=== PATIENT | female | born 1935 | race Caucasian/White ===

== ENCOUNTER 2017-12-06 10:54 | Inpatient (IN) ==
[2017-12-06 12:25] LABS: Basophils % 0.2 % (0.0-0.8); Hemoglobin 14.4 GM/DL (12.0-16.0); Immature Granulocytes % 0.4 %; Immature Granulocytes Absolute 0.04 #; Lymphocytes # 0.5 10*3/uL (1.4-4.0); Lymphocytes % 5.4 % (21.3-54.2); Mean Corpuscular HGB Conc 34.3 GM/DL (32-36); Mean Corpuscular Hemoglobin 30 PG (27-34); Mean Corpuscular Volume 87.5 FL (87-102); Mean Platelet Volume 10.9 FL (9.6-12.0); Monocytes # 0.6 10*3/uL (0.11-0.8); Monocytes % 7.1 % (1.7-12.7); Neutrophils # 7.8 10*3/uL (1.4-7.4); Neutrophils % 86.9 % (38.7-73.9); Platelet Count 142 T/CUMM (130-400); Red Cell Distribution Width 13.8 % (9.3-17.3); White Blood Count 8.9 T/CUMM (4-12)
[2017-12-06 12:30] LABS: Apearance,Urine Slightly Hazy (Clear); Bacteria,Urine Many /HPF (Few); Bilirubin,Urine Negative (Negative); Blood, Urine Large mg/dL (Negative); Glucose,Urine (UA) Negative (Negative); Ketones,Urine 20 mg/dL (Negative); Mucus,Urine Occasional /LPF (Occasional); Nitrite,Urine Negative (Negative); Protein,Urine 100 MG/DL; Urine Color Amber (Yellow); Urine Specific Gravity 1.029 (1.001-1.035); Urine Urobilinogen < 2.0 EU/DL (0.2-1.0); WBC,Urine 3 /HPF (0-6)
[2017-12-06] MEDS ORDERED: SODIUM CHLORIDE 0.9% 1,000 ML IV STA ×2 (12:45→13:56)
[2017-12-06] MEDS ORDERED: DILTIAZEM 50 MG/10 ML VIAL IV STA (12:50)
[2017-12-06 12:55] LABS: Albumin 3.7 G/DL (3.4-5.0); Bilirubin,Total 1.2 MG/DL (0.2-1.0); Calcium 8.5 MG/DL (8.5-10.1); Potassium 3.5 MMOL/L (3.5-5.1); Total Protein 6.9 G/DL (6.4-8.3)
[2017-12-06 13:22] LABS: CKMB % 0.5 %
[2017-12-06] MEDS: DILTIAZEM INJ 100 MG in SODIUM CHLORIDE 0.9% 100 ML IV SCH (14:31)
[2017-12-06] MEDS ORDERED: ONDANSETRON 4 MG/2 ML VIAL IV PRN (14:41)
[2017-12-06 15:00] LABS: PT Patient Result 10.9 SECS
[2017-12-06] MEDS: SODIUM CHLORIDE 0.9% 1,000 ML IV SCH (15:59)
[2017-12-06] MEDS: ENOXAPARIN 60 MG/0.6 ML SYRINGE SUBCUT SCH (16:01)
[2017-12-06 21:39] LABS: CKMB % 0.4 %
[2017-12-06] MEDS: CARBIDOPA/LEVODOPA 25-100 MG TABLET PO SCH (21:50)
[2017-12-07 04:12] LABS: Basophils % 0.3 % (0.0-0.8); Eosinophils % 0.7 % (0.00-10.9); Hematocrit 36.5 VOL% (35.7-47.0); Hemoglobin 12.4 GM/DL (12.0-16.0); Immature Granulocytes % 0.3 %; Immature Granulocytes Absolute 0.02 #; Lymphocytes # 1.1 10*3/uL (1.4-4.0); Lymphocytes % 18.9 % (21.3-54.2); Mean Corpuscular Hemoglobin 30 PG (27-34); Mean Corpuscular Volume 89.2 FL (87-102); Mean Platelet Volume 11.1 FL (9.6-12.0); Monocytes # 0.5 10*3/uL (0.11-0.8); Neutrophils # 4.2 10*3/uL (1.4-7.4); Neutrophils % 71.8 % (38.7-73.9); Platelet Count 113 T/CUMM (130-400); Red Blood Count 4.09 MC/CUMM (3.8-5.5); Red Cell Distribution Width 14.1 % (9.3-17.3); White Blood Count 5.9 T/CUMM (4-12)
[2017-12-07 04:19] LABS: INR 1.1; PT Patient Result 11.6 SECS
[2017-12-07] MEDS: ENOXAPARIN 60 MG/0.6 ML SYRINGE SUBCUT SCH ×2 (04:28→17:19)
[2017-12-07 04:36] LABS: Calcium 7.6 MG/DL (8.5-10.1); Osmolality,Calculated 284.8 MOS/KG (273-304); Potassium 3.5 MMOL/L (3.5-5.1); Risk Ratio 2.7; Thyroid Stimulating Hormone 0.091 uIU/ml (0.358-3.74); VLDL CHOLESTEROL 15.2 MG/DL
[2017-12-07] MEDS: ACETAMINOPHEN 325 MG TABLET PO PRN ×2 (09:54→18:00)
[2017-12-07] MEDS: PANTOPRAZOLE 40 MG TABLET PO SCH (09:54)
[2017-12-07] MEDS: METOPROLOL TARTRATE 25 MG TABLET PO SCH (09:54)
[2017-12-07] MEDS: CARBIDOPA/LEVODOPA 25-100 MG TABLET PO SCH ×2 (09:54→21:29)
[2017-12-07] MEDS: SERTRALINE 100 MG TABLET PO SCH (09:55)
[2017-12-07] MEDS: DILTIAZEM INJ 100 MG in SODIUM CHLORIDE 0.9% 100 ML IV SCH (15:32)
[2017-12-07] MEDS: BACITRACIN OINT 0.9 GM PACK TOP SCH (17:19)
[2017-12-07] MEDS: SODIUM CHLORIDE 0.9% 1,000 ML IV SCH (17:19)
[2017-12-07 18:23] LABS: Apearance,Urine Slightly Hazy (Clear); Bacteria,Urine Occasional /HPF (Few); Bilirubin,Urine Negative (Negative); Blood, Urine Small mg/dL (Negative); Glucose,Urine (UA) Negative (Negative); Ketones,Urine 20 mg/dL (Negative); Mucus,Urine Occasional /LPF (Occasional); Nitrite,Urine Negative (Negative); Protein,Urine Negative; RBC,Urine 1 /HPF (0-4); Squamous Epithelial Cell,Urine Occasional /HPF (0-10); Urine Color Amber (Yellow); Urine Specific Gravity 1.018 (1.001-1.035); Urine Urobilinogen < 2.0 EU/DL (0.2-1.0); WBC,Urine 16 /HPF (0-6)
[2017-12-07] MEDS: traZODone 50 MG TABLET PO PRN (21:29)
[2017-12-08] MEDS: ENOXAPARIN 60 MG/0.6 ML SYRINGE SUBCUT SCH ×2 (04:21→16:36)
[2017-12-08 05:40] LABS: Basophils % 0.5 % (0.0-0.8); Eosinophils # 0.1 10*3/uL (0.0-0.87); Eosinophils % 2.9 % (0.00-10.9); Hematocrit 33.7 VOL% (35.7-47.0); Hemoglobin 11.8 GM/DL (12.0-16.0); Immature Granulocytes % 0.2 %; Immature Granulocytes Absolute 0.01 #; Lymphocytes # 0.7 10*3/uL (1.4-4.0); Lymphocytes % 16.4 % (21.3-54.2); Mean Corpuscular Hemoglobin 30 PG (27-34); Mean Corpuscular Volume 86.9 FL (87-102); Mean Platelet Volume 11.6 FL (9.6-12.0); Monocytes # 0.3 10*3/uL (0.11-0.8); Monocytes % 7.5 % (1.7-12.7); Neutrophils % 72.5 % (38.7-73.9); Platelet Count 106 T/CUMM (130-400); Red Blood Count 3.88 MC/CUMM (3.8-5.5); Red Cell Distribution Width 14.1 % (9.3-17.3); White Blood Count 4.2 T/CUMM (4-12)
[2017-12-08 06:17] LABS: Calcium 7.8 MG/DL (8.5-10.1); Osmolality,Calculated 283.8 MOS/KG (273-304); Potassium 3.1 MMOL/L (3.5-5.1)
[2017-12-08] MEDS: CARBIDOPA/LEVODOPA 25-100 MG TABLET PO SCH ×2 (08:47→21:22)
[2017-12-08] MEDS: SERTRALINE 100 MG TABLET PO SCH (08:47)
[2017-12-08] MEDS: PANTOPRAZOLE 40 MG TABLET PO SCH (08:48)
[2017-12-08] MEDS: METOPROLOL TARTRATE 25 MG TABLET PO SCH (08:48)
[2017-12-08] MEDS: BACITRACIN OINT 0.9 GM PACK TOP SCH (08:48)
[2017-12-08] MEDS ORDERED: POTASSIUM CHLORIDE 20 MEQ TABLET PO ONE (11:19)
[2017-12-08] MEDS: SODIUM CHLORIDE 0.9% 1,000 ML IV SCH (14:13)
[2017-12-08] MEDS: ERTAPENEM 1,000 MG in SODIUM CHLORIDE 0.9% 100 ML IV SCH (14:14)
[2017-12-08] MEDS: ACETAMINOPHEN 325 MG TABLET PO PRN (17:41)
[2017-12-08] MEDS: traZODone 50 MG TABLET PO PRN (21:23)
[2017-12-09 05:18] LABS: Calcium 7.8 MG/DL (8.5-10.1); Osmolality,Calculated 288.6 MOS/KG (273-304); Potassium 3.4 MMOL/L (3.5-5.1)
[2017-12-09] MEDS: SERTRALINE 100 MG TABLET PO SCH (08:59)
[2017-12-09] MEDS: CARBIDOPA/LEVODOPA 25-100 MG TABLET PO SCH (08:59)
[2017-12-09] MEDS: PANTOPRAZOLE 40 MG TABLET PO SCH (08:59)
[2017-12-09] MEDS: METOPROLOL TARTRATE 25 MG TABLET PO SCH (08:59)
[2017-12-09] MEDS ORDERED: POTASSIUM CHLORIDE 20 MEQ TABLET PO SCH (09:00)
[2017-12-09] MEDS: BACITRACIN OINT 0.9 GM PACK TOP SCH (09:31)
[2017-12-09] MEDS: SODIUM CHLORIDE 0.9% 1,000 ML IV SCH (09:33)
[2017-12-09] MEDS: ERTAPENEM 1,000 MG in SODIUM CHLORIDE 0.9% 100 ML IV SCH (13:58)
[2017-12-09 16:33] VITALS: BP 150/67
== END 2017-12-09 16:53 | disposition home health service (06) | DRG 309 ==
LOC: EDUNIT# → EDBD → N.ED 10:54 → N.EDINP 14:07 → N.TELES 15:25
PROVIDERS: ADMIT Hospitalist; ATTEND Hospitalist